=== PATIENT | female | born 1990 | race Caucasian/White ===

== ENCOUNTER 2021-09-14 02:20 | Emergency (ER) | payer MEDICAID ==
--- NOTE | 2021-09-14 02:53 | EDM.PDOC ---
ED HPI GENERAL MEDICAL PROBLEM - General Chief Complaint: Allergic Reaction Stated Complaint: ALLERGIC REACTION Time Seen by Provider: 09/14/21 02:35 Source of Information: Reports: Patient History Limitations: Reports: No Limitations - History of Present Illness INITIAL COMMENTS - FREE TEXT/NARRATIVE: 31-year-old female presents the ED after [place] of an allergic reaction. Patient began having a " reaction" approximately 3 days ago where she began taking Benadryl. Patient states" she has been eating Benadryl like candy", and feels like her airway is going to close off, her chest feels tight and she has altered sensation in her left shoulder and arm. Her skin is flushed. Positive for: Skin flushing, dry mouth, feeling hot, cardiac palpitations history of, recent trip to [place], use of oils and sunblock, exposure to cold. Negative for: Hives, wheezing, itching, chest pain, shortness of breath, difficulty swallowing, change in appetite, change in bowel movements constipation/diarrhea, change in urinary color smell frequency, headache, blurred vision, no swollen painful joints. - Related Data Allergies Allergy/AdvReac Type Severity Reaction Status Date / Time latex Allergy Hives Verified 09/14/21 03:23 Home Meds: Home Meds predniSONE 30 mg PO DAILY #15 tab 09/14/21 [Rx] Past Medical History Cardiovascular History: Reports: Other (See Below) (Palpitations hospitalized for work-up) Dermatologic History: Reports: Other (See Below) (Allergic reactions) ED ROS ALLERGIC REACTION - Review of Systems Review Of Systems: Comprehensive ROS is negative, except as noted in HPI. ED EXAM GENERAL NO PERIP PULSE - Physical Exam Exam: See Below Text/Narrative:: ABC intact. No apparent distress. No obvious trauma. Speaking in full sentences. Alert and oriented x3, GCS 456. Exam Limited By: No Limitations General Appearance: Alert, WD/WN, No Apparent Distress Eye Exam: Bilateral Eye: EOMI, PERRL Ears: Normal External Exam, Hearing Grossly Normal Nose: Normal Inspection, Normal Mucosa, No Blood Throat/Mouth: Normal Inspection, Normal Teeth, Normal Gums, Normal Oropharynx, Normal Voice, No Airway Compromise, Other (Lips appear cosmetically injected, no evidence of airway swelling noted on visual inspection). No: Dysphagia, Inflammation, Perioral Cyanosis Head: Atraumatic, Normocephalic Neck: Normal Inspection, Supple, Non-Tender, Full Range of Motion. No: Lymphadenopathy (R), Lymphadenopathy (L) Respiratory/Chest: No Respiratory Distress, No Accessory Muscle Use, Chest Non- Tender (Sternal pressure), Decreased Breath Sounds. No: Respiratory Distress, Rales, Rhonchi, Wheezing, Accessory Muscle Use Cardiovascular: Normal Peripheral Pulses, Regular Rate, Rhythm, No Edema, No Gallop, No JVD, No Murmur, No Rub GI/Abdominal: Normal Bowel Sounds, Soft, Non-Tender, No Organomegaly, No Distention, No Abnormal Bruit, No Mass Extremities: Normal Inspection, Non-Tender, No Pedal Edema, Normal Capillary Refill Neurological: Alert, Oriented, Normal Cognition Psychiatric: Normal Affect, Anxious Skin Exam: Warm, Dry, Other (Flushed very burning) Lymphatic: No Adenopathy #1 Interpretation EKG Date: 09/14/21 (Normal sinus rhythm without ectopy, no ST elevation or depression, this is not a STEMI, inverted T waves in V1) Course - Vital Signs Last Recorded V/S: Last Vital Signs Temp 97.8 F 09/14/21 02:45 Pulse 115 H 09/14/21 02:45 Resp 18 09/14/21 02:45 BP 120/70 09/14/21 02:45 Pulse Ox 100 09/14/21 02:45 - Orders/Labs/Meds Orders: Active Orders 24 hr Category Date Time Status POC Testing [POC Labs] [RC] ASDIRECTED Care 09/14/21 03:05 Active RT Aerosol Therapy [RC] ASDIRECTED Care 09/14/21 03:44 Active Chest 1V Frontal [CR] Stat Exams 09/14/21 03:02 Taken EKG 12 Lead [EK] Routine Ther 09/14/21 02:47 Ordered Labs: Laboratory Tests 09/14/21 09/14/21 09/14/21 Range/Units 03:15 03:15 03:15 WBC 5.5 (4.0-11.0) K/uL RBC 4.36 (3.80-5.80) M/uL Hgb 15.1 (11.5-16.5) g/dL Hct 43.4 (37.0-47.0) % MCV 100 H (76-96) fL MCH 34.6 H (27.0-32.0) pg MCHC 34.8 (31.0-35.0) g/dL RDW 12.4 (11.0-16.0) % Plt Count 283 (150-500) K/uL MPV 9.2 (6.0-10.0) fL Neut % (Auto) 51.3 (45.0-70.0) % Lymph % (Auto) 34.7 (20.0-40.0) % [place] % (Auto) 11.4 H (3.0-10.0) % Eos % (Auto) 2.2 (1.0-5.0) % Baso % (Auto) 0.4 (0.0-0.5) % Neut # (Auto) 2.85 (2.00-7.50) K/uL Lymph # (Auto) 1.92 (1.50-4.00) K/uL [place] # (Auto) 0.63 (0.20-0.80) K/uL Eos # (Auto) 0.12 (0.04-0.40) K/uL Baso # (Auto) 0.02 (0.02-0.10) K/uL Sodium 139 (136-145) mmol/L Potassium 3.4 L (3.5-5.1) mmol/L Chloride 102 (98-107) mmol/L Carbon Dioxide 27.0 (21.0-32.0) mmol/L Anion Gap 13.4 (5.0-15.0) mmol/L BUN 8 (8-26) mg/dL Creatinine 0.83 (0.55-1.02) mg/dL Est Cr Clr Drug Dosing 99.98 mL/min Estimated GFR (MDRD) > 60 (>60) MLS/MIN BUN/Creatinine Ratio 9.6 (6-25) Glucose 80 (74-100) mg/dL Calcium 9.0 (8.5-10.1) mg/dL Creatine Kinase 98 (21-232) U/L Troponin I (0.000-0.060) ng/mL Urine HCG, Qual Negative (NEGATIVE) 09/14/21 Range/Units 03:15 WBC (4.0-11.0) K/uL RBC (3.80-5.80) M/uL Hgb (11.5-16.5) g/dL Hct (37.0-47.0) % MCV (76-96) fL MCH (27.0-32.0) pg MCHC (31.0-35.0) g/dL RDW (11.0-16.0) % Plt Count (150-500) K/uL MPV (6.0-10.0) fL Neut % (Auto) (45.0-70.0) % Lymph % (Auto) (20.0-40.0) % [place] % (Auto) (3.0-10.0) % Eos % (Auto) (1.0-5.0) % Baso % (Auto) (0.0-0.5) % Neut # (Auto) (2.00-7.50) K/uL Lymph # (Auto) (1.50-4.00) K/uL [place] # (Auto) (0.20-0.80) K/uL Eos # (Auto) (0.04-0.40) K/uL Baso # (Auto) (0.02-0.10) K/uL Sodium (136-145) mmol/L Potassium (3.5-5.1) mmol/L Chloride (98-107) mmol/L Carbon Dioxide (21.0-32.0) mmol/L Anion Gap (5.0-15.0) mmol/L BUN (8-26) mg/dL Creatinine (0.55-1.02) mg/dL Est Cr Clr Drug Dosing mL/min Estimated GFR (MDRD) (>60) MLS/MIN BUN/Creatinine Ratio (6-25) Glucose (74-100) mg/dL Calcium (8.5-10.1) mg/dL Creatine Kinase (21-232) U/L Troponin I < 0.017 (0.000-0.060) ng/mL Urine HCG, Qual (NEGATIVE) Meds: Medications Discontinued Medications Generic Name Dose Route Start Last Admin Trade Name Freq PRN Reason Stop Dose Admin Albuterol/Ipratropium 3 ml 09/14/21 03:15 09/14/21 03:20 Albuterol/Ipratropium 3.0-0.5 Mg/3 Ml Neb Soln NEB 09/14/21 03:16 3 ml Q2H ONE Administration Lorazepam 1 mg 09/14/21 03:50 09/14/21 03:53 Lorazepam 1 Mg Tab PO 09/14/21 03:51 1 mg ONETIME ONE Administration Lorazepam Confirm 09/14/21 05:13 09/14/21 05:22 Lorazepam 2 Mg/Ml Sdv Administered 09/14/21 05:14 Not Given Dose 2 mg .ROUTE .STK-MED ONE Lorazepam 1 mg 09/14/21 05:10 09/14/21 05:22 Lorazepam 2 Mg/Ml Sdv IM 09/14/21 05:11 1 mg ONETIME ONE Administration Methylprednisolone Sodium Succinate 125 mg 09/14/21 03:50 09/14/21 03:53 Methylprednisolone Sodium Succinate 125 Mg/2 Ml Sdv IM 09/14/21 03:51 125 mg ONETIME ONE Administration - Radiology Interpretation Free Text/Narrative:: Chest x-ray interpretation no acute findings Departure - Departure Time of Disposition: 06:19 Disposition: Home, Self-Care 01 Condition: Good Clinical Impression: Anxiety Anticholinergic drug overdose Qualifiers: Encounter type: initial encounter Injury intent: accidental or unintentional Qualified Code(s): T44.3X1A - Poisoning by other parasympatholytics [anticholinergics and antimuscarinics] and spasmolytics, accidental (unintentional), initial encounter - Discharge Information *PRESCRIPTION DRUG MONITORING PROGRAM REVIEWED*: No *COPY OF PRESCRIPTION DRUG MONITORING REPORT IN PATIENT DERRELL: No Instructions: Anaphylactic Reaction, Adult, Allergies, Adult Referrals: PCP,None [Primary Care Provider] - Forms: ED Department Discharge Additional Instructions: Return to an emergency room if symptoms progress. Take medications as prescribed. Do not take more benadryl at this time. See your primary care physician to discuss concerns of allergies, anxiety, and any symptoms you feel are related to your heart. Call with questions or concerns. Sepsis Event Note (ED) - Focused Exam Vital Signs: Vital Signs Temp Pulse Resp BP Pulse Ox 09/14/21 02:45 97.8 F 115 H 18 120/70 100 - My Orders Last 24 Hours: My Active Orders 09/14/21 02:47 EKG 12 Lead [EK] Routine 09/14/21 03:02 Chest 1V Frontal [CR] Stat 09/14/21 03:05 POC Testing [POC Labs] [RC] ASDIRECTED 09/14/21 03:44 RT Aerosol Therapy [RC] ASDIRECTED - Assessment/Plan Last 24 Hours: My Active Orders 09/14/21 02:47 EKG 12 Lead [EK] Routine 09/14/21 03:02 Chest 1V Frontal [CR] Stat 09/14/21 03:05 POC Testing [POC Labs] [RC] ASDIRECTED 09/14/21 03:44 RT Aerosol Therapy [RC] ASDIRECTED Assessment:: 1. Skin flushing 2. Slight shortness of breath/"throat swelling" sensation 3. Chest discomfort 31-year-old female presents with chest discomfort. Work-up in the emergency room is thus far negative. Differential diagnosis for chest pain is broad includes life-threatening etiologies such as acute coronary syndrome, myocardial infarction, pulmonary embolism, acute aortic dissection, amongst others. Other causes may include pneumonia, pneumothorax, chest wall source, pericarditis, pleurisy, esophageal spasm etc. No serious etiology of chest pain was detected today and emergency department. The work-up included EKG, troponins, chest x- ray. Close follow-up with primary care provider is indicated should the pain continue, as further work-up may be performed; this was made clear to the patient who understands. Patient was also evaluated for anxiety reaction. There is a history of anxiety in the past but they have never sought medical care for same. Patient feels improved (anxiety, throat swelling sensation and chest discomfort) after interventions, specifically Ativan 1 mg oral 1 mg IM, I believe this was made worse by the fact that she consumed too much antihistamine over the last 3 days as she was thinking she was having allergic reaction that resulted in a anticholinergic syndrome. There is no serious signs of psychiatric decompensation warranting psychiatric hospitalization or 72-hour hold. Noted toxidrome was addressed with patient she is to discontinue taking Benadryl and switch to Zyrtec 10 mg once every 24 hours. Supportive outpatient management is therefore indicated. Patient will be sent home with a burst prednisone prescription 30 mg once daily for 5 days. Anticholinergic overdoseunintentional ingestion of excess Benadryl to address her allergic reaction that she thought she was having, patient states that she did not take more than 8 tablets in the last 3 days but I suspect that it was a greater amount based on her symptoms. Patient had skin flushing, dry mouth and skin, patient felt hot, and originally came in with tachycardia at 115. Negative for: mydriasis, delirium, urinary retention, constipation, myoclonic jerking, seizures, QRS prolongation, QT prolongation. Patient at discharge: Skin flushing had cleared, was urinating without difficulty, mouth was moist, patient no longer feeling hot, and patient's heart rate had returned into the 80s-90s. -Patient and/or insurance follow up representative understood and agreed to treatment plan. -All questions were answered to the patient's satisfaction. -Patient is discharged in stable condition. Patient to return to the ED if symptoms increase/return, fever greater than 103, shortness of breath, return of chest pain. Follow-up with primary care provider soon as possible to address anxiety. Plan: ABC, history, exam, labs, chest x-ray, DuoNeb, Solu-Medrol 125 mg IM, Ativan, discharged stable condition, given amatory prescription for prednisone 30 mg daily for 5 days, patient to follow-up with primary care provider regarding anxiety. Reasons for returning to the emergency department were explained and understood by the patient
[2021-09-14] MEDS: Albuterol/Ipratropium 3.0-0.5 MG/3 ML Neb Soln NEB ONE (03:20)
[2021-09-14] MEDS: LORazepam 1 MG Tab PO ONE (03:53)
[2021-09-14] MEDS: methylPREDNISolone Sodium Succinate 125 MG/2 ML SDV IM ONE (03:53)
[2021-09-14] MEDS: LORazepam 2 MG/ML SDV IM ONE (05:22)
[2021-09-14] MEDS: LORazepam 2 MG/ML SDV ONE (05:22)
[2021-09-14] MEDS ORDERED: predniSONE 10 MG Tab ONE (06:00)
--- NOTE | 2021-09-14 08:47 | CR ---
Date of Service: 09/14/21 Clinical Data: SOB AP CHEST: No priors. The heart size is normal. The lungs are clear. No pneumothorax. No pleural effusions. No evidence of acute intrathoracic disease. [id number] MTDD
== END 2021-09-14 06:30 | disposition home or self-care (01) ==
LOC: LB.ED 02:20
DX: T44.3X1A Poisoning by other parasympatholytics [anticholinergics and antimuscarinics] and spasmolytics, accidental (unintentional), initial encounter (principal); F41.9 Anxiety disorder, unspecified; Z91.040 Latex allergy status
CPT/HCPCS: 36415; 71045; 80048; 81025; 82550; 84484; 85025; 93005; 96372; 99284; A9270; J2060; J2930; J7512; J7620-GY